=== PATIENT | male | born 1970 | race Two or more races ===

== ENCOUNTER 2024-11-02 08:05 | Emergency (ER) | payer OTHER ==
[~2024-11-02] VITALS: Ht 185.4 cm; Wt 97.5 kg
[2024-11-02] MEDS ORDERED: KETOROLAC TROMETHAMINE 30 MG VIAL IV ONE (09:30)
[2024-11-02] MEDS ORDERED: KETOROLAC TROMETHAMINE 30 MG VIAL ONE (09:38)
[2024-11-02 10:19] LABS: HEMATOCRIT 41.4 % (39.0-48.0); HEMOGLOBIN 13.7 g/dL (13-16.00); MEAN CELL VOLUME 89.9 fL (80.0-100.00); MEAN CORPUSCULAR HEMOGLOBIN 29.8 pg (27.00-32.0); MEAN CORPUSCULAR HGB CONC 33.2 g/dl (32.0-36.0); PLATELET COUNT 214 K/uL (150-450); RED BLOOD COUNT 4.61 M/uL (4.00-6.00); RED CELL DISTRIBUTION WIDTH 14.4 % (11.5-14.5)
[2024-11-02 10:40] LABS: INR 1.05; PARTIAL THROMBOPLASTIN TIME 26.5 SECONDS (22.0-34.0); PROTHROMBIN TIME 11.4 SECONDS (9.0-11.5)
[2024-11-02 10:46] LABS: ALBUMIN 3.5 gm/dL (3.4-5.0); BILIRUBIN TOTAL 0.7 mg/dL (0.3-1.2); CREATININE SERUM 1.01 mg/dL (0.70-1.30); GFR 76.98; GLOBULINA 3.7 G/DL (2.4-3.5); POTASSIUM 4.29 mEq/L (3.5-5.1); TOTAL PROTEIN 7.2 gm/dL (6.4-8.2)
[2024-11-02] MEDS ORDERED: ANALPRAM HC 2.530 GM RECTAL (11:42)
[2024-11-02] MEDS ORDERED: NORFLEX100MG PO (11:42)
[2024-11-02] MEDS ORDERED: MEDROLPACK PO (11:42)
== END 2024-11-02 12:24 | disposition home or self-care (01) ==
LOC: ER 08:06
PROVIDERS: General Practice
DX: K62.89 Other specified diseases of anus and rectum (principal)